=== PATIENT | male | born 1985 | race Caucasian/White ===

== ENCOUNTER 2017-01-23 16:41 | Emergency (ER) | payer OTHER ==
[~2017-01-23] VITALS: Wt 81.6 kg
[~2017-01-23 16:41] MED LIST: AMOXICILLIN500 MG PO; ANAPROX DS550 MG PO; COMPAZINE10 MG PO; FIORTAL 325 MG-1 TAB PO; HYDROCODONE BIT1 T11 PO; MOTRIN800 MG PO; NAPROSYN500 MG PO; NKHM PO; NORCO 325 MG-51 TAB PO; NORCO 5-325 TA1 EACH PO; PEN-V500 MG PO; PEN-VEE K500 MG PO; PENICILLIN-VK500 MG PO; PERIDEX 480 ML480 ML PO; Peridex 473 ML473 ML PO; TYLENOL ES500 MG PO; ULTRAM50 MG PO; VICODIN 5/500 505 MG PO; VICODIN ES 7501 TAB PO; ZANTAC150 MG PO
[2017-01-23] MEDS ORDERED: CYCLOBENZAPRINE5 M3 PO (18:42)
== END 2017-01-23 20:27 | disposition home or self-care (01) ==
LOC: ED 16:41
DX: M62.830 Muscle spasm of back (principal); F17.200 Nicotine dependence, unspecified, uncomplicated

== ENCOUNTER 2017-04-10 16:02 | Emergency (ER) | payer OTHER ==
[~2017-04-10 16:02] MED LIST changes: +CYCLOBENZAPRINE5 M3 PO
[2017-04-10] MEDS ORDERED: NAPROSYN500 MG PO (16:26)
[2017-04-10] MEDS ORDERED: AMOXICILLIN500 M2 PO (16:26)
== END 2017-04-10 16:30 | disposition home or self-care (01) ==
LOC: ED 16:02
DX: K08.89 Other specified disorders of teeth and supporting structures (principal); F17.200 Nicotine dependence, unspecified, uncomplicated; Z79.899 Other long term (current) drug therapy

== ENCOUNTER 2017-06-23 15:41 | Emergency (ER) | payer OTHER ==
[~2017-06-23] VITALS: Ht 180.3 cm; Wt 86.2 kg
[~2017-06-23 15:41] MED LIST changes: +AMOXICILLIN500 M2 PO
[2017-06-23] MEDS ORDERED: NORCO 5-325 TA1 EACH PO (17:51)
== END 2017-06-23 22:29 | disposition home or self-care (01) ==
LOC: ED 15:41
DX: S62.647A Nondisplaced fracture of proximal phalanx of left little finger, initial encounter for closed fracture (principal); S61.412A Laceration without foreign body of left hand, initial encounter; F17.200 Nicotine dependence, unspecified, uncomplicated; W22.8XXA Striking against or struck by other objects, initial encounter; Y93.89 Activity, other specified; Y92.69 Other specified industrial and construction area as the place of occurrence of the external cause; Y99.9 Unspecified external cause status

== ENCOUNTER → 2017-07-05 | Outpatient (CLI) | payer OTHER | END | disposition home or self-care (01) | LOC: ORTHO 01:56 | DX: S62.617D Displaced fracture of proximal phalanx of left little finger, subsequent encounter for fracture with routine healing (principal); M25.442 Effusion, left hand; X58.XXXD Exposure to other specified factors, subsequent encounter ==

== ENCOUNTER → 2017-07-22 | Outpatient (CLI) | payer OTHER | END | disposition home or self-care (01) | LOC: ORTHO 00:43 | DX: S62.617D Displaced fracture of proximal phalanx of left little finger, subsequent encounter for fracture with routine healing (principal); X58.XXXD Exposure to other specified factors, subsequent encounter ==

== ENCOUNTER → 2017-08-05 | Outpatient (CLI) | payer OTHER | END | disposition home or self-care (01) | LOC: ORTHO 00:22 | DX: S62.607D Fracture of unspecified phalanx of left little finger, subsequent encounter for fracture with routine healing (principal); X58.XXXD Exposure to other specified factors, subsequent encounter ==

== ENCOUNTER 2018-06-09 12:03 | Emergency (ER) | payer SELFPAY ==
[~2018-06-09] VITALS: Ht 180.3 cm; Wt 81.6 kg
[2018-06-09] MEDS ORDERED: Motrin,Rufen800 MG PO (12:13)
[2018-06-09] MEDS ORDERED: AMOXICILLIN500 M2 PO (12:13)
== END 2018-06-09 12:25 | disposition home or self-care (01) ==
LOC: ED 12:03
DX: K02.9 Dental caries, unspecified (principal); Z90.49 Acquired absence of other specified parts of digestive tract

== ENCOUNTER 2021-07-02 16:33 | Emergency (ER) | payer SELFPAY ==
[~2021-07-02 16:33] MED LIST changes: +AUGMENTIN 875-875 MG PO; +Motrin,Rufen800 MG PO
[2021-07-02] MEDS ORDERED: HYDROCODONE-AC1 EAC1 PO ×4 (19:07→19:20)
[2021-07-02] MEDS ORDERED: CLEOCIN HCL150 MG PO (19:07)
[2021-07-02] MEDS ORDERED: IBU800 MG PO (19:07)
== END 2021-07-02 19:26 | disposition home or self-care (01) ==
LOC: ED 16:33
DX: K04.7 Periapical abscess without sinus (principal); K02.9 Dental caries, unspecified

== ENCOUNTER 2023-02-24 14:21 | Inpatient (IN) | payer SELFPAY ==
[~2023-02-24] VITALS: Ht 177.8 cm; Wt 77.2 kg
[~2023-02-24 14:21] MED LIST changes: +CLEOCIN HCL150 MG PO; +HYDROCODONE-AC1 EAC1 PO; +IBU800 MG PO
[2023-02-24 14:38] VITALS: BP 149/86
[2023-02-24 20:02] LABS: BASO % 0.3 % (0.0-1.0); EOS % 0.2 % (1.0-4.0); LYMPH # 1.6 10*3/uL (1.3-4.4); LYMPH % 11.5 % (27.0-41.0); MEAN CELL VOLUME 80.1 fl (80.0-94.0); MEAN CORPUSCULAR HGB 27.7 pg (27.0-31.0); MEAN CORPUSCULAR HGB CONC 34.5 g/dl (33.0-37.0); MEAN PLATELET VOLUME 9.9 fl (9.6-12.3); MONO # 1.2 10*3/uL (0.1-1.0); MONO % 8.3 % (3.0-9.0); NEUT # 11.1 10*3/uL (2.3-7.9); NEUT % 79.5 % (47.0-73.0); PLATELET COUNT AUTOMATED 258 10*3/uL (130-400); RED BLOOD COUNT 5.49 10*6/uL (4.50-5.90)
[2023-02-24 20:05] LABS: BILIRUBIN Negative (Negative); BLOOD Negative (Negative); CLARITY Clear (Clear); COLOR Yellow (Yellow); GLUCOSE Negative (Negative); KETONE 3+ (Negative); LEUKO ESTERASE Negative (Negative); NITRITE Negative (Negative); PH 5.5 (4.5-8.0); SPECIFIC GRAVITY >= 1.030 (1.001-1.030)
[2023-02-24 20:16] LABS: ALKALINE PHOSPHATASE 121 U/L (46-116); BUN 10 mg/dl (9-23); CHLORIDE 99 mmol/L (98-107); LIPASE 24 U/L (12-53); POTASSIUM 3.8 mmol/L (3.4-5.1); SGPT/ALT 18 U/L (10-49); TOTAL PROTEIN 7.4 gm/dL (6.0-8.0)
[2023-02-24 20:31] LABS: RBC 0-2 rbc/hpf (0-2); WBC 0-2 wbc/hpf (0-5)
[2023-02-24 22:07] VITALS: BP 112/76
[2023-02-25 01:08] VITALS: BP 141/70
[2023-02-25 06:11] VITALS: BP 152/92
[2023-02-25 06:49] LABS: BASO % 0.2 % (0.0-1.0); EOS % 0.2 % (1.0-4.0); HEMATOCRIT 40.1 % (42.0-52.0); LYMPH # 1.6 10*3/uL (1.3-4.4); MEAN CELL VOLUME 80.7 fl (80.0-94.0); MEAN CORPUSCULAR HGB 27.6 pg (27.0-31.0); MEAN CORPUSCULAR HGB CONC 34.2 g/dl (33.0-37.0); MEAN PLATELET VOLUME 9.8 fl (9.6-12.3); MONO # 1.2 10*3/uL (0.1-1.0); MONO % 9.3 % (3.0-9.0); NEUT # 10.4 10*3/uL (2.3-7.9); NEUT % 78.1 % (47.0-73.0); PLATELET COUNT AUTOMATED 197 10*3/uL (130-400); RED BLOOD COUNT 4.97 10*6/uL (4.50-5.90); RED CELL DISTRI WIDTH 11.1 % (0-14.5); WHITE BLOOD COUNT 13.4 10*3/uL (4.8-10.8)
[2023-02-25 07:20] VITALS: BP 146/90
[2023-02-25 08:03] LABS: BUN 8 mg/dl (9-23); CHLORIDE 102 mmol/L (98-107); CHOLESTEROL 91 mg/dL (<200); FREE T4 3.53 ng/dl (0.89-1.76); LDL CHOLESTEROL 42 mg/dL (9-159); POTASSIUM 4.1 mmol/L (3.4-5.1); TRIGLYCERIDES 55 mg/dl (<150)
[2023-02-25 08:13] LABS: THYROID STIM HORMONE (HS) < 0.008 uIU/ml (0.550-4.780)
[2023-02-25 08:49] LABS: VITAMIN D, 25-HYDROXY 20.1 ng/mL (30-100)
[2023-02-25 12:10] VITALS: BP 142/90
[2023-02-25 16:00] VITALS: BP 137/79
[2023-02-25 20:00] VITALS: BP 143/77
[2023-02-26] VITALS: BP 143/81
[2023-02-26 08:00] VITALS: BP 136/86
[2023-02-26 12:00] VITALS: BP 128/68
[2023-02-26 16:00] VITALS: BP 123/77
[2023-02-26 20:00] VITALS: BP 130/75
[2023-02-27] VITALS: BP 121/65
[2023-02-27 07:02] LABS: BASO % 0.2 % (0.0-1.0); EOS # 0.1 10*3/uL (0.0-0.4); EOS % 0.5 % (1.0-4.0); HEMATOCRIT 42.1 % (42.0-52.0); LYMPH # 2.4 10*3/uL (1.3-4.4); MEAN CELL VOLUME 81.3 fl (80.0-94.0); MEAN CORPUSCULAR HGB 27.2 pg (27.0-31.0); MEAN CORPUSCULAR HGB CONC 33.5 g/dl (33.0-37.0); MEAN PLATELET VOLUME 10.3 fl (9.6-12.3); MONO # 1.4 10*3/uL (0.1-1.0); MONO % 10.2 % (3.0-9.0); NEUT # 9.5 10*3/uL (2.3-7.9); NEUT % 70.8 % (47.0-73.0); RED BLOOD COUNT 5.18 10*6/uL (4.50-5.90); WHITE BLOOD COUNT 13.4 10*3/uL (4.8-10.8)
[2023-02-27 07:05] LABS: PLATELET COUNT AUTOMATED 292 10*3/uL (130-400)
[2023-02-27 07:21] LABS: BUN 10 mg/dl (9-23); CHLORIDE 98 mmol/L (98-107); POTASSIUM 3.4 mmol/L (3.4-5.1)
[2023-02-27 08:00] VITALS: BP 136/77
[2023-02-27] MEDS ORDERED: MUCUS RELIEF600 MG PO (11:37)
[2023-02-27] MEDS ORDERED: XARELTO20 M1 PO (11:37)
[2023-02-27] MEDS ORDERED: HYDROCODONE-AC1 EAC1 PO (11:37)
[2023-02-27] MEDS ORDERED: XARE15TA PO (11:37)
[2023-02-27] MEDS ORDERED: METHIMAZOLE5 M1 PO (11:37)
[2023-02-27] MEDS ORDERED: ZITHROMAX250 MG PO (11:37)
[2023-02-27] MEDS ORDERED: VITAMIN D350 MCG PO (11:37)
[2023-02-27] MEDS ORDERED: PROPRANOLOL HCL10 MG PO (11:37)
[2023-02-27 12:00] VITALS: BP 128/76
[2023-03-01 15:07] LABS: THYROGLOBULIN ANTIBODY 1.6 IU/mL (0.0-0.9)
== END 2023-02-27 12:45 | disposition home or self-care (01) | DRG 871 ==
LOC: ED 14:21 → EDHOLD 21:41 → 4E 21:41
PROVIDERS: Physician Assistant; Student in an Organized Health Care Education/Training Program; ADMIT Internal Medicine; ATTEND Internal Medicine
DX: A41.9 Sepsis, unspecified organism (principal); I26.99 Other pulmonary embolism without acute cor pulmonale; J18.9 Pneumonia, unspecified organism; F17.200 Nicotine dependence, unspecified, uncomplicated; E87.1 Hypo-osmolality and hyponatremia; Z90.49 Acquired absence of other specified parts of digestive tract; Z82.49 Family history of ischemic heart disease and other diseases of the circulatory system

== ENCOUNTER 2024-10-22 10:05 | Emergency (ER) | payer SELFPAY ==
[~2024-10-22] VITALS: Ht 180.3 cm; Wt 87.5 kg
[~2024-10-22 10:05] MED LIST changes: +METHIMAZOLE5 M1 PO; +MUCUS RELIEF600 MG PO; +PROPRANOLOL HCL10 MG PO; +VITAMIN D350 MCG PO; +XARE15TA PO; +XARELTO20 M1 PO; +ZITHROMAX250 MG PO
[2024-10-22] MEDS ORDERED: MELOXICAM15 MG PO (10:24)
[2024-10-22] MEDS ORDERED: AMOX-CLAV 875-1 EACH PO (10:24)
[2024-10-22] MEDS ORDERED: Amoxicillin/Clavulanate Pota 875 MG TAB PO ONE (10:25)
[2024-10-22] MEDS ORDERED: Acetaminophen/Oxycodone 5 MG/325 MG TABLET PO ONE (10:25)
== END 2024-10-22 10:27 | disposition home or self-care (01) ==
LOC: ED 10:05
DX: K04.7 Periapical abscess without sinus (principal); R22.0 Localized swelling, mass and lump, head; F17.210 Nicotine dependence, cigarettes, uncomplicated; Z90.49 Acquired absence of other specified parts of digestive tract